=== PATIENT | male | born 2000 | race Caucasian/White ===

== ENCOUNTER 2023-04-04 19:16 | Inpatient (IN) | payer BC ==
[2023-04-04 19:51] LABS: #Monocytes 1.1 10x3/uL (0.0-1.1); #Neutrophils 10.4 10x3/uL (1.5-8.4); %Basophils 0.3 % (0.0-2.0); %Eosinophils 0.2 % (0.0-6.0); %Monocytes 8.7 % (0.0-10.0); %Neutrophils 79.5 % (40.0-75.0); Hematocrit 47.2 % (38.8-50.0); Hemoglobin 15.9 g/dL (13.5-17.5); Mean Corpuscular HGB CONC 33.7 g/dL (32.0-36.0); Mean Corpuscular Hemoglobin 29.1 pg (27.0-33.0); Mean Corpuscular Volume 86.4 fl (81.2-95.1); Mean Platelet Volume 10.6 fl (7.4-10.4); Platelet Count 256 10x3/uL (150-450); RBC Distribution Width 13.2 % (11.5-14.5); Red Blood Cell (RBC) Count 5.46 10x6/uL (4.32-5.72)
[2023-04-04 20:03] LABS: ALT (SGPT) 25 U/L (8-55); AST (SGOT) 68 U/L (5-34); Albumin 4.6 g/dL (3.5-5.0); Alkaline Phosphatase 93 U/L (40-110); Anion Gap 18 mmol/L (10-20); BUN (Urea Nitrogen) 6 mg/dL (8.9-20.6); Bilirubin, Total 0.5 mg/dL (0.2-1.2); Calc. Creatinine Clearance 0 mL/min (70-130); Calcium 9.4 mg/dL (7.8-10.44); Carbon Dioxide 23 mmol/L (22-29); Chloride 101 mmol/L (98-107); Estimated GFR 121; Globulin 2.6 g/dL (2.4-3.5); Glucose 100 mg/dL (70-105); Potassium 4.3 mmol/L (3.5-5.1); Protein, Total 7.2 g/dL (6.0-8.3); Sodium 138 mmol/L (136-145)
[2023-04-04 20:14] LABS: Troponin I 9.874 ng/mL (< 0.028)
[2023-04-04] MEDS ORDERED: Ketorolac Tromethamine 30 MG/ML VIAL ONE (20:14)
[2023-04-04] MEDS ORDERED: Colchicine 0.6 MG TAB ONE (20:43)
[2023-04-04 21:21] LABS: SARS-CoV-2 NAA Rapid Test Not Detected (NotDetected)
[2023-04-04] MEDS ORDERED: Ketorolac Tromethamine 30 MG/ML VIAL IVP PRN (21:23)
[2023-04-04] MEDS ORDERED: Aspirin 325 MG TAB PO SCH (22:00)
[2023-04-04] MEDS ORDERED: Mag-Al 1200 mg/1200 mg/30 ML UDCUP PO PRN (23:52)
[2023-04-04 23:54] VITALS: BMI 27.2
[2023-04-04 23:57] LABS: Magnesium 2.3 mg/dL (1.6-2.6)
[2023-04-05 00:09] LABS: Troponin I 13.342 ng/mL (< 0.028)
[2023-04-05 00:12] LABS: CRP (Inflammatory) 2.07 mg/dL (= or < 0.5)
[2023-04-05 02:47] LABS: #Eosinphils 0.1 10x3/uL (0.0-0.5); #Monocytes 1.4 10x3/uL (0.0-1.1); #Neutrophils 4.3 10x3/uL (1.5-8.4); %Basophils 0.3 % (0.0-2.0); %Eosinophils 1.5 % (0.0-6.0); %Monocytes 16.3 % (0.0-10.0); %Neutrophils 49.8 % (40.0-75.0); Hematocrit 44.4 % (38.8-50.0); Hemoglobin 14.9 g/dL (13.5-17.5); Mean Corpuscular HGB CONC 33.6 g/dL (32.0-36.0); Mean Corpuscular Hemoglobin 28.9 pg (27.0-33.0); Mean Corpuscular Volume 86.2 fl (81.2-95.1); Mean Platelet Volume 10.3 fl (7.4-10.4); Platelet Count 245 10x3/uL (150-450); RBC Distribution Width 13.2 % (11.5-14.5); Red Blood Cell (RBC) Count 5.15 10x6/uL (4.32-5.72); White Blood Cell (WBC) Count 8.7 10x3/uL (3.5-10.5)
[2023-04-05 03:10] LABS: Troponin I 14.091 ng/mL (< 0.028)
[2023-04-05 03:22] LABS: Anion Gap 14 mmol/L (10-20); BUN (Urea Nitrogen) 8 mg/dL (8.9-20.6); Calc. Creatinine Clearance 149 mL/min (70-130); Calcium 9.4 mg/dL (7.8-10.44); Carbon Dioxide 30 mmol/L (22-29); Cardiac Risk 7.4 (Less than 4.5); Chloride 101 mmol/L (98-107); Cholesterol 163 mg/dl (< 200 Desired); Estimated GFR 101; Glucose 114 mg/dL (70-105); HDL Cholesterol 22 mg/dL (>60 Neg Risk); LDL Cholesterol, Calculated 109 mg/dL; Potassium 4.5 mmol/L (3.5-5.1); Sodium 140 mmol/L (136-145); Triglycerides 158 mg/dL (Less than 150)
[2023-04-05] MEDS ORDERED: Acetaminophen 325 MG TAB PO PRN (03:33)
[2023-04-05] MEDS: Colchicine 0.6 MG TAB PO SCH ×2 (08:22→20:52)
[2023-04-05] MEDS ORDERED: Aspirin Chewable 81 MG TAB PO SCH (09:00)
[2023-04-05] MEDS ORDERED: Naproxen 500 MG TAB PO SCH ×3 (09:00→21:00)
[2023-04-05] MEDS ORDERED: Ketorolac Tromethamine 30 MG/ML VIAL ONE (10:59)
[2023-04-05] MEDS ORDERED: Ketorolac Tromethamine 30 MG/ML VIAL IVP PRN ×2 (10:59→11:00)
[2023-04-05] MEDS ORDERED: Morphine 4 MG/ML VIAL ONE (11:24)
[2023-04-05] MEDS ORDERED: Ondansetron PF 4 MG/2 ML Vial IVP PRN (11:31)
[2023-04-05] MEDS ORDERED: Morphine 4 MG/ML VIAL SLOW IVP SCH (12:00)
[2023-04-05] MEDS ORDERED: Carvedilol 3.125 MG TAB PO SCH ×2 (12:00→17:00)
[2023-04-05 12:27] LABS: Uric Acid 4.4 mg/dL (3.5-7.2)
[2023-04-05] MEDS ORDERED: Colchicine 0.6 MG TAB PO SCH (13:00)
[2023-04-05] MEDS: Metoprolol Tartrate 25 MG TAB PO SCH (20:52)
[2023-04-06] MEDS ORDERED: Morphine 2 MG/ML VIAL SLOW IVP PRN (08:18)
[2023-04-06] MEDS ORDERED: Aspirin 325 MG TAB PO SCH (09:00)
[2023-04-06 09:22] LABS: #Eosinphils 0.2 10x3/uL (0.0-0.5); #Monocytes 1.1 10x3/uL (0.0-1.1); #Neutrophils 3.6 10x3/uL (1.5-8.4); %Basophils 0.4 % (0.0-2.0); %Eosinophils 2.1 % (0.0-6.0); %Lymphocytes 30.3 % (18.0-47.0); %Monocytes 16.1 % (0.0-10.0); %Neutrophils 50.8 % (40.0-75.0); Hemoglobin 14.7 g/dL (13.5-17.5); Mean Corpuscular HGB CONC 33.4 g/dL (32.0-36.0); Mean Corpuscular Hemoglobin 29.8 pg (27.0-33.0); Mean Corpuscular Volume 89.1 fl (81.2-95.1); Platelet Count 209 10x3/uL (150-450); RBC Distribution Width 13.3 % (11.5-14.5); Red Blood Cell (RBC) Count 4.94 10x6/uL (4.32-5.72); White Blood Cell (WBC) Count 7.1 10x3/uL (3.5-10.5)
[2023-04-06 09:29] LABS: ALT (SGPT) 24 U/L (8-55); AST (SGOT) 66 U/L (5-34); Albumin 3.8 g/dL (3.5-5.0); Alkaline Phosphatase 78 U/L (40-110); Anion Gap 13 mmol/L (10-20); BUN (Urea Nitrogen) 8 mg/dL (8.9-20.6); Bilirubin, Total 0.4 mg/dL (0.2-1.2); CK (CPK) 356 U/L (30-200); CRP (Inflammatory) 0.79 mg/dL (= or < 0.5); Calc. Creatinine Clearance 135 mL/min (70-130); Calcium 9.1 mg/dL (7.8-10.44); Carbon Dioxide 27 mmol/L (22-29); Chloride 105 mmol/L (98-107); Estimated GFR 90; Globulin 2.5 g/dL (2.4-3.5); Glucose 94 mg/dL (70-105); Magnesium 2.1 mg/dL (1.6-2.6); Potassium 4.2 mmol/L (3.5-5.1); Protein, Total 6.3 g/dL (6.0-8.3); Sodium 141 mmol/L (136-145)
[2023-04-06 09:36] LABS: Troponin I 18.879 ng/mL (< 0.028)
[2023-04-06] MEDS: Metoprolol Tartrate 25 MG TAB PO SCH ×2 (09:44→20:38)
[2023-04-06] MEDS: Colchicine 0.6 MG TAB PO SCH ×2 (09:44→20:38)
[2023-04-06] MEDS: Ketorolac Tromethamine 30 MG/ML VIAL IVP SCH ×3 (14:09→23:59)
[2023-04-07 05:35] LABS: #Eosinphils 0.2 10x3/uL (0.0-0.5); #Monocytes 1.1 10x3/uL (0.0-1.1); #Neutrophils 3.6 10x3/uL (1.5-8.4); %Basophils 0.4 % (0.0-2.0); %Eosinophils 2.5 % (0.0-6.0); %Lymphocytes 35.4 % (18.0-47.0); %Monocytes 13.9 % (0.0-10.0); %Neutrophils 47.4 % (40.0-75.0); Hematocrit 42.6 % (38.8-50.0); Hemoglobin 14.4 g/dL (13.5-17.5); Mean Corpuscular HGB CONC 33.8 g/dL (32.0-36.0); Mean Corpuscular Hemoglobin 29.8 pg (27.0-33.0); Mean Platelet Volume 11.5 fl (7.4-10.4); Platelet Count 227 10x3/uL (150-450); Red Blood Cell (RBC) Count 4.84 10x6/uL (4.32-5.72); White Blood Cell (WBC) Count 7.6 10x3/uL (3.5-10.5)
[2023-04-07] MEDS: Ketorolac Tromethamine 30 MG/ML VIAL IVP SCH ×2 (05:48→14:20)
[2023-04-07 05:50] LABS: ALT (SGPT) 27 U/L (8-55); AST (SGOT) 41 U/L (5-34); Albumin 3.8 g/dL (3.5-5.0); Alkaline Phosphatase 73 U/L (40-110); Anion Gap 11 mmol/L (10-20); BUN (Urea Nitrogen) 10 mg/dL (8.9-20.6); Bilirubin, Total 0.3 mg/dL (0.2-1.2); CK (CPK) 123 U/L (30-200); Calc. Creatinine Clearance 167 mL/min (70-130); Calcium 8.9 mg/dL (7.8-10.44); Carbon Dioxide 26 mmol/L (22-29); Chloride 107 mmol/L (98-107); Estimated GFR 117; Globulin 2.5 g/dL (2.4-3.5); Glucose 93 mg/dL (70-105); Protein, Total 6.3 g/dL (6.0-8.3); Sodium 140 mmol/L (136-145)
[2023-04-07 06:01] LABS: CRP (Inflammatory) Less than 0.50 mg/dL (= or < 0.5)
[2023-04-07] MEDS: Metoprolol Tartrate 25 MG TAB PO SCH (08:36)
[2023-04-07] MEDS: Colchicine 0.6 MG TAB PO SCH (08:36)
[2023-04-07] MEDS ORDERED: Aspirin Chewable 81 MG TAB PO SCH (09:00)
[2023-04-07 09:04] VITALS: TEMP 98
[2023-04-07 12:59] VITALS: BP 127/90
== END 2023-04-07 14:00 | disposition home or self-care (01) | DRG 315 ==
LOC: CSHERS 19:16 → INTOOBSV 21:32 → CSHTELE 21:32 → OBSVTOIN 04-06 16:59
PROVIDERS: ADMIT Family Medicine; ATTEND Hospitalist
DX: I30.1 Infective pericarditis (principal); I42.9 Cardiomyopathy, unspecified; I45.10 Unspecified right bundle-branch block; R00.0 Tachycardia, unspecified; J06.9 Acute upper respiratory infection, unspecified; R77.8 Other specified abnormalities of plasma proteins; Z20.822 Contact with and (suspected) exposure to COVID-19; Z98.890 Other specified postprocedural states
CPT/HCPCS: 36415; 71045; 71046; 80048; 80053; 80061; 82550; 83735; 84484; 84550; 85025; 86140; 87633; 93005; 93010; 93306; 96374; 96375; 96376; G0378; J1650; J1885; J2270; J2405